=== PATIENT | female | born 1970 | race Caucasian/White ===

== ENCOUNTER 2021-09-24 13:19 | Emergency (ER) | payer OTHER ==
[2021-09-24 13:31] VITALS: BP 139/77; PULSE 76; TEMP 97.6; BMI 34.0
[2021-09-24] MEDS ORDERED: SODIUM CHLORIDE 0.9% 500 ML INFUS.BAG IV ONE (14:15)
[2021-09-24] MEDS ORDERED: FAMOTIDINE 20 MG/50 ML IVPB 20 MG/50 ML MG IVPB ONE (14:15)
[2021-09-24] MEDS ORDERED: ONDANSETRON 4 MG/2 ML VIAL IVPUSH ONE (14:15)
[2021-09-24] MEDS ORDERED: ONDANSETRON 4 MG/2 ML VIAL ONE (14:24)
[2021-09-24] MEDS ORDERED: LIDOCAINE 5% TOPICAL PATCH ONE ×2 (14:24→15:34)
[2021-09-24] MEDS ORDERED: FAMOTIDINE 10 MG/ML VIAL IVPB ONE (14:25)
[2021-09-24] MEDS: LIDOCAINE 5% TOPICAL PATCH TP ONE ×2 (15:08→15:31)
[2021-09-24 15:28] LABS: BASO % 0.2 % (0-2.0); EOS % 0.7 % (0-4.5); HEMATOCRIT 38.9 % (32.4-45.2); HEMOGLOBIN 13.1 GM/dL (10.7-15.3); LYMPH % 24.7 % (8-40); MCH 30.6 pg (25.7-33.7); MCHC 33.8 g/dl (32.0-36.0); MEAN CELL VOLUME 90.6 fl (80-96); MEAN PLT VOLUME 6.9 fl (7.5-11.1); MONO % 6.2 % (3.8-10.2); NEUT % 68.2 % (42.8-82.8); PLATELET COUNT 383 10^3/uL (134-434); RBC 4.29 M/mm3 (3.60-5.2); RDW 12.1 % (11.6-15.6); WHITE BLOOD COUNT 6.9 K/mm3 (4.0-10.0)
[2021-09-24 15:33] LABS: URINE APPEARANCE CLEAR; URINE BILIRUBIN NEGATIVE (NEGATIVE); URINE COLOR YELLOW; URINE GLUCOSE (UA) NEGATIVE (NEGATIVE); URINE KETONE NEGATIVE (NEGATIVE); URINE LEUK ESTERASE NEGATIVE (NEGATIVE); URINE NITRITE NEGATIVE (NEGATIVE); URINE PROTEIN NEGATIVE (NEGATIVE); URINE UROBILINOGEN 0.2 mg/dL (0.2-1.0)
[2021-09-24 15:35] LABS: HCG,QUALITATIVE URINE Negative
[2021-09-24 15:47] LABS: CALCIUM 9.1 mg/dL (8.5-10.1)
[2021-09-24 15:48] LABS: BLOOD UREA NITROGEN 12.9 mg/dL (7-18)
[2021-09-24 15:50] LABS: CREATININE 0.7 mg/dL (0.55-1.3)
[2021-09-24 15:52] LABS: BILIRUBIN,TOTAL 0.6 mg/dL (0.2-1); TOT PROT 7.3 g/dl (6.4-8.2)
[2021-09-25] MEDS ORDERED: LIDOCAINE PATCH REMOVAL MC SCH (02:45)
== END 2021-09-24 17:00 | disposition home or self-care (01) ==
LOC: JER 13:19
PROC: 3E033GC Introduction of Other Therapeutic Substance into Peripheral Vein, Percutaneous Approach (ICD-10-PCS; principal; 2021-09-24)
DX: R10.13 Epigastric pain (principal); M54.50 Low back pain, unspecified; R11.0 Nausea
CPT/HCPCS: 36415; 76705-TC; 80053; 81003; 83690; 84703; 85025; 87086; 96365; 96375; 99284-25

== ENCOUNTER 2021-09-29 13:14 | Observation (INO) | payer OTHER ==
[2021-09-29] MEDS ORDERED: ONDANSETRON 4 MG/2 ML VIAL ONE (13:30)
[2021-09-29 14:41] LABS: BASO % 0.2 % (0-2.0); EOS % 0.2 % (0-4.5); HEMATOCRIT 41.1 % (32.4-45.2); HEMOGLOBIN 14.1 GM/dL (10.7-15.3); LYMPH % 11.1 % (8-40); MCHC 34.4 g/dl (32.0-36.0); MEAN CELL VOLUME 90.3 fl (80-96); MEAN PLT VOLUME 7.1 fl (7.5-11.1); MONO % 4.4 % (3.8-10.2); NEUT % 84.1 % (42.8-82.8); PLATELET COUNT 417 10^3/uL (134-434); RBC 4.56 M/mm3 (3.60-5.2); RDW 12.5 % (11.6-15.6)
[2021-09-29 14:44] LABS: URINE APPEARANCE CLEAR; URINE BILIRUBIN NEGATIVE (NEGATIVE); URINE COLOR YELLOW; URINE GLUCOSE (UA) NEGATIVE (NEGATIVE); URINE KETONE NEGATIVE (NEGATIVE); URINE LEUK ESTERASE NEGATIVE (NEGATIVE); URINE NITRITE NEGATIVE (NEGATIVE); URINE PROTEIN NEGATIVE (NEGATIVE); URINE UROBILINOGEN 0.2 mg/dL (0.2-1.0)
[2021-09-29 14:47] LABS: HCG,QUALITATIVE URINE Negative
[2021-09-29 15:00] LABS: CALCIUM 9.3 mg/dL (8.5-10.1)
[2021-09-29 15:01] LABS: MAGNESIUM 2.6 mg/dL (1.8-2.4)
[2021-09-29 15:04] LABS: CREATININE 0.8 mg/dL (0.55-1.3)
[2021-09-29 15:05] LABS: BILIRUBIN,TOTAL 0.4 mg/dL (0.2-1); TOT PROT 7.6 g/dl (6.4-8.2)
[2021-09-29 15:12] LABS: LACTIC ACID 3.3 mmol/L (0.4-2.0)
[2021-09-29] MEDS ORDERED: LORazepam 2 MG/ML SDV VIAL IVPUSH ONE (15:17)
[2021-09-29] MEDS ORDERED: LACTATED RINGERS SOLUTION 1000 ML INFUS.BAG IV ONE (17:17)
[2021-09-29] MEDS ORDERED: levETIRAcetam 500 MG/5 ML INJECTION VIAL IVPB ONE ×2 (17:43→18:03)
[2021-09-29] MEDS ORDERED: SODIUM CHLORIDE 1,000 ML IV SCH ×2 (20:15→22:54)
[2021-09-29 21:35] LABS: LACTIC ACID 3.2 mmol/L (0.4-2.0)
[2021-09-29 22:11] LABS: METHADONE, UR NEGATIVE (NEGATIVE); PHENCYCLIDINE,URINE NEGATIVE (NEGATIVE); URINE BENZODIAZEPINES NEGATIVE (NEGATIVE)
[2021-09-29 22:12] LABS: OPIATES, URI NEGATIVE (NEGATIVE); URINE BARBITURATES NEGATIVE (NEGATIVE)
[2021-09-29 22:26] LABS: COCAINE, UR NEGATIVE (NEGATIVE); URINE AMPHETAMINES NEGATIVE (NEGATIVE)
[2021-09-29] MEDS ORDERED: FAMOTIDINE 20 MG TABLET ONE (22:41)
[2021-09-29] MEDS ORDERED: levETIRAcetam 500 MG TABLET (FP) PO ONE (22:41)
[2021-09-29] MEDS ORDERED: ENOXAPARIN NA (PORCINE) 40 MG/0.4 ML DISP.SYRIN SQ ONE (22:42)
[2021-09-29] MEDS: ENOXAPARIN NA (PORCINE) 40 MG/0.4 ML DISP.SYRIN SQ SCH (22:53)
[2021-09-29] MEDS: levETIRAcetam 500 MG TABLET (FP) PO SCH (22:53)
[2021-09-29] MEDS: FAMOTIDINE 20 MG TABLET PO SCH (22:53)
[2021-09-30 03:21] VITALS: BMI 33.3
[2021-09-30 07:59] LABS: BASO % 0.2 % (0-2.0); EOS % 1.1 % (0-4.5); HEMATOCRIT 34.8 % (32.4-45.2); LYMPH % 29.2 % (8-40); MCH 31.2 pg (25.7-33.7); MCHC 34.4 g/dl (32.0-36.0); MEAN CELL VOLUME 90.6 fl (80-96); MEAN PLT VOLUME 6.5 fl (7.5-11.1); MONO % 8.1 % (3.8-10.2); NEUT % 61.4 % (42.8-82.8); PLATELET COUNT 340 10^3/uL (134-434); RBC 3.84 M/mm3 (3.60-5.2); RDW 12.4 % (11.6-15.6)
[2021-09-30 08:23] LABS: CALCIUM 8.7 mg/dL (8.5-10.1)
[2021-09-30 08:24] LABS: ALBUMIN 3.2 g/dl (3.4-5.0); BLOOD UREA NITROGEN 9.4 mg/dL (7-18); MAGNESIUM 2.8 mg/dL (1.8-2.4)
[2021-09-30 08:27] LABS: CREATININE 0.7 mg/dL (0.55-1.3)
[2021-09-30 08:28] LABS: BILIRUBIN,TOTAL 0.8 mg/dL (0.2-1); TOT PROT 6.3 g/dl (6.4-8.2)
[2021-09-30] MEDS ORDERED: LOSARTAN POTASSIUM 25 MG TABLET PO SCH (10:00)
[2021-09-30] MEDS: ENOXAPARIN NA (PORCINE) 40 MG/0.4 ML DISP.SYRIN SQ SCH (10:08)
[2021-09-30] MEDS: levETIRAcetam 500 MG TABLET (FP) PO SCH (10:08)
[2021-09-30] MEDS: FAMOTIDINE 20 MG TABLET PO SCH (10:08)
[2021-09-30 11:38] VITALS: BP 126/61; PULSE 89; TEMP 97.9
== END 2021-09-30 14:32 | disposition home or self-care (01) ==
LOC: JER 13:14 → UNDOADMOB 19:03 → JERBED 19:03 → INTOOBSV 19:03 → JERBED 09-30 02:15 → J8W 09-30 02:15 → JERBED 09-30 09:47
PROVIDERS: ADMIT Internal Medicine
PROC: 3E023GC Introduction of Other Therapeutic Substance into Muscle, Percutaneous Approach (ICD-10-PCS; principal; 2021-09-30)
PROC: 3E033GC Introduction of Other Therapeutic Substance into Peripheral Vein, Percutaneous Approach (ICD-10-PCS; 2021-09-30)
PROC: 3E0337Z Introduction of Electrolytic and Water Balance Substance into Peripheral Vein, Percutaneous Approach (ICD-10-PCS; 2021-09-30)
PROC: 3E0333Z Introduction of Anti-inflammatory into Peripheral Vein, Percutaneous Approach (ICD-10-PCS; 2021-09-30)
DX: R56.9 Unspecified convulsions (principal); E87.2 Acidosis; E66.8 Other obesity; D72.829 Elevated white blood cell count, unspecified; Z68.33 Body mass index [BMI] 33.0-33.9, adult; Z90.79 Acquired absence of other genital organ(s)
CPT/HCPCS: 36415; 70450-TC; 71045-TC-FY; 80053; 80307; 81003; 82550; 82962; 83036; 83605; 83735; 84100; 84146; 84443; 84484; 84703; 85025; 87040; 87804; 93005; 93010; 96361; 96372; 96374; 99285-25; C9803-CS; G0378; U0003; U0005